=== PATIENT | female | born 1950 | race Caucasian/White ===

== ENCOUNTER → 2021-04-25 09:45 | Outpatient (CLI) | payer MEDICARE, SELFPAY ==
[2021-04-25 13:14] LABS: COVID19 -Nasal RAPID Negative (Negative)
== END ==
PROVIDERS: Visit Provider Nurse Practitioner Family
DX: Z20.822 Contact with and (suspected) exposure to COVID-19 (principal)
CPT/HCPCS: 87635; C9803

== ENCOUNTER 2021-04-27 13:44 | Day surgery (SDC) | payer MEDICARE, SELFPAY ==
[2021-04-27] VITALS (8 sets, daily range): BP systolic 108–133; BP diastolic 67–82; PULSE 70–88; RESP 16; TEMP 36–37.2; O2SAT 96–100; BMI 35.3
--- NOTE | 2021-04-27 | PATH_ITS ---
[facility] Accession Number: [id number] . 01 Material submitted: . PART A: duodenum - DUODENUM BIOPSY PART B: stomach - GASTRIC ANTRUM BIOPSY PART C: stomach - GASTRIC POLYPS . 02 Diagnosis: A. Duodenum, Biopsy: Small bowel mucosa with no diagnostic abnormality. Negative for active inflammation, dysplasia, and malignancy. . B. Gastric Antrum, Biopsy: Gastric antral mucosa with mild chronic inflammation. Negative for Helicobacter organisms by immunohistochemistry. Negative for intestinal metaplasia. Negative for dysplasia or malignancy. . C. Gastric Polyps: Portions of hyperplastic polyp x2. MRV 05/03/2021 1412 Local . 02 Electronically signed: . Luz Maria Quinteros MD, Pathologist NPI- [id number] . 01 Gross description: . Part A: DUODENUM BIOPSY: Received in formalin are 2 fragment(s) of robles, soft tissue measuring 0.2 x 0.2 x 0.2 cm to 0.2 x 0.2 x 0.1 cm submitted entirely in 1 cassette(s) Part B: GASTRIC ANTRUM BIOPSY: Received in formalin is 1 fragment(s) of robles, soft tissue measuring 0.1 x 0.1 x 0.1 cm submitted entirely in 1 cassette(s) Part C: GASTRIC POLYPS: Received in formalin are 2 fragment(s) of robles, soft tissue measuring 0.3 x 0.3 x 0.1 cm to 0.2 x 0.2 x 0.1 cm submitted entirely in 1 cassette(s) /GET 04/29/2021 1129 Local . 02 Microscopic: . B. An immunohistochemical stain was performed to evaluate for Helicobacter organisms and is negative. The control stain showed appropriate reactivity. . . * This test was developed and its performance characteristics determined by [facility]. It has not been cleared or approved by the U.S. Food and Drug Administration. The FDA has determined that such clearance or approval is not necessary. This test is used for clinical purposes. It should not be regarded as investigational or for research. . 02 Pathologist provided ICD-10: D50.9 . 02 CPT . 374273, 863004, 348515, S60737 Performed at: 01 [facility] [address] [address], [place], [place] [id number] MD Ronni Guzman MD Phone: [phone] Performed at: 02 [facility] [address] [place] [id number] MD Roxane Holliday MD Phone: [phone]
--- NOTE | 2021-04-27 15:25 | PM.HP.1 ---
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 Family & Social History Social History: household members spouse Tobacco & Substance use: Smoking Status Former smoker alcohol intake never Substance Use Type does not use Meds Home Medications and Allergies Home Medications Medication Instructions Recorded Confirmed Type Blank 10 mg PO DAILY 04/26/21 04/27/21 History Excedrin Back and Body 04/26/21 History Tylenol 04/26/21 History Vitamin B-12 04/26/21 History Vitamin C 04/26/21 History Vitamin D3 04/26/21 History bupropion HCl 300 mg PO DAILY 04/26/21 04/27/21 History calcium 1,200 mg PO DAILY 04/26/21 04/27/21 History losartan 100 mg PO DAILY 04/26/21 04/27/21 History lovastatin 40 mg PO DAILY 04/26/21 04/27/21 History multivit,bkdxfxc-hcc-zyjkq acd 04/26/21 History omeprazole 40 mg capsule,delayed 40 mg PO DAILY 04/26/21 04/27/21 History release propranolol 20 mg PO PRN 04/26/21 History tramadol 04/26/21 History Allergies Allergy/AdvReac Type Severity Reaction Status Date / Time lisinopril Allergy Intermediate Cough Verified 04/27/21 15:07 codeine Allergy Mild Nausea Verified 04/27/21 15:06 hydrochlorothiazide AdvReac Mild unknown Verified 04/27/21 15:06 hydrocodone AdvReac Mild nuasea Verified 04/27/21 15:06 hydroxyzine AdvReac Mild unknown Verified 04/27/21 15:07 Review of Systems Review of Systems ROS: Yes All systems reviewed with the patient and are negative except as otherwise documented Exam Vital Signs (past 8 hours): - 04/27/21 14:44 Temperature 99.0 F Pulse Rate 70 Respiratory Rate 16 Blood Pressure 132/81 Pulse Oximetry 98 Oxygen Delivery Method Room Air Const General: cooperative and comfortable Orientation: alert HENMT Head: normocephalic Ears: external ears normal Nose: external nose normal Face and sinus: normal facial exam Mouth: oral mucosae normal Eyes General: appearance normal, both eyes and all related structures Neck Neck: normal visual inspection Chest Chest: normal inspection of the chest Resp Effort & Inspection: normal respiratory effort Auscultation: clear to auscultation bilaterally Cardio Rate: regular rate Rhythm: regular rhythm Heart Sounds: no murmurs GI Inspection: normal to inspection Palpation: soft and No tender Auscultation: normal bowel sounds Skin General: no rashes or lesions noted and No jaundice Neuro General: patient alert and moves all extremities Cognition: normal cognition Speech: speech normal Extrem General: no pedal edema Psych Appearance: grossly normal Assessment & Plan Assessment & Plan narrative: Iron deficiency anemia. EGD and colonoscopy are planned for today. Time Spent With Patient Critical Care time: I spent a total of [] minutes of critical care time on this patient's care today; this time is exclusive of procedural time.
[2021-04-27] MEDS: SODIUM CHLORIDE 0.9% 1,000 ML 84 ML IV (15:27)
--- NOTE | 2021-04-27 15:27 | PM.PREOP ---
Pre-operative Note COVID-19 COVID-19 status: Negative Result date/Date tested (Pos, Neg/Pending): 04/25/21 Interval Note History & Physical reviewed/Exam performed by Physician: Yes Changes to H&P: No ASA Class (for procedural sedation): II
--- NOTE | 2021-04-27 16:10 | PM.OP.ENDO ---
Operative Date/Time/Diagnoses Date of procedure: 04/27/21 Time of procedure: 16:10 Pre-op diagnosis: Iron deficiency anemia Post-op diagnosis: same Procedure & Clinicians Study performed: EGD with biopsies and colonoscopy Same procedure as scheduled: Yes Indications: Iron deficiency anemia Surgeon: Chuy Garcia Procedure Notes SCOAP/Timeout: Done Procedure in detail: After the risks and benefits were explained, written and verbal informed consent was obtained. The patient was brought into the procedure room and placed into the left lateral decubitus position. Please see nurse seed laboratory assistant notes The scope was introduced into the mouth through the bite block and advanced under direct visualization to the 2nd portion of the duodenum. The scope was slowly withdrawn carefully examining the mucosa for any defects or lesions. Retroflexed views were accomplished in the stomach. The stomach was decompressed, the scope was then removed from the patient who tolerated the procedure well. Patient was then turned around a digital rectal examination was accomplished the scope was introduced into the rectum and advanced under direct visualization to cecum as identified by the appendiceal orifice and ileocecal valve. The scope was slowly withdrawn to carefully examine the mucosa for any defects or lesions. Multiple direct views were made through the dentate line for exclusion of pathology the colon was decompressed the scope removed from the patient who tolerated the procedure well. Bowel prep adequate Adult colonoscope Scope withdrawal time: 6 minutes Sedation minutes: 37 Complications: none Impression: 1. Duodenum: This appeared visually normal from the bulb through to the 2nd portion. Random D2 biopsies were acquired for exclusion of celiac. 2. Stomach: There was mild gastropathy appreciated in the antrum and therefore biopsy was acquired for exclusion of Helicobacter pylori infection. No ulcers no outlet obstruction no mass lesions. Retroflexed views of the LES disclosed a moderate-sized hiatal hernia. 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 In the proximal stomach and fundus there were several diminutive benign-appearing polyps 1 of these was sampled with forceps for histopathologic analysis. 3. Esophagus: The is way more columnar junction seen to correlate quite well with the top of the gastric folds. GEJ was at approximately 32 cm from the incisors. The the diaphragmatic hiatus was at approximately 36 cm from the incisors. The remainder of the esophagus was visually unremarkable. 4. Colon: Patient had a fairly tortuous sigmoid colon. With the adult colonoscope this was a little challenging. I did not appreciate any polyps mass lesions or inflammatory features throughout. Endoscopic diagnosis: 1. Moderate-sized hiatal hernia 2. Diminutive gastric polyps 3. Mild gastropathy 4. Visually normal colonoscopy to cecum Post-procedure Plan for aftercare: 1. Await histopathology. 2. Continue omeprazole. 3. Repeat colonoscopy can be considered in 5 years considering the multiple second-degree family members with a history of colon cancer. 4. No obvious explanation was found today for the iron deficiency anemia apart from the subtle Luisito's erosions which were not active at this time. I therefore would recommend capsule endoscopy. Disposition: PACU
--- NOTE | 2021-04-27 16:47 | SUR.PHASEII ---
dc instructions given in detail. questions invited and answered. states understanding. cosme juice well. converses appropriately with staff.
== END 2021-04-27 17:10 | disposition home or self-care (01) ==
PROVIDERS: PCP Family Medicine; Referring Provider Internal Medicine Gastroenterology; Visit Provider Internal Medicine Gastroenterology
PROC: 0DJ08ZZ Inspection of Upper Intestinal Tract, Via Natural or Artificial Opening Endoscopic (ICD-10-PCS; CPT 43235; principal; 2021-04-27 15:15)
PROC: 0DJD8ZZ Inspection of Lower Intestinal Tract, Via Natural or Artificial Opening Endoscopic (ICD-10-PCS; CPT 45378; 2021-04-27 15:15)
DX: D50.9 Iron deficiency anemia, unspecified (principal); K44.9 Diaphragmatic hernia without obstruction or gangrene; K31.7 Polyp of stomach and duodenum; K31.9 Disease of stomach and duodenum, unspecified; E53.8 Deficiency of other specified B group vitamins; I10 Essential (primary) hypertension; Z80.0 Family history of malignant neoplasm of digestive organs
CPT/HCPCS: 43239; 45378

== ENCOUNTER → 2024-04-18 11:18 | Outpatient (CLI) | payer MEDICARE, SELFPAY ==
--- NOTE | 2024-04-18 | DI.MRI.S_ITS ---
PROCEDURE: MR SHOULDER LT WO CON INDICATIONS: chronic left shoulder pain TECHNIQUE: Noncontrast oblique coronal T2 fast spin echo with fat saturation, oblique sagittal T1 spin echo and T2 fast spin echo with fat saturation, axial T1 spin echo and T2 fast spin echo with fat saturation through the shoulder. Five sequences total COMPARISON: None. 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 Markedly irregular degenerated labrum suggests remote superior labrum anterior-posterior tear. Rotator cuff: Abnormal increased T2 weighted signal and thinning of the rotator cuff predominantly the of the mid and distal supraspinatus infraspinatus with suspected partial tear, thickening and low signal distal supraspinatus may represent chronic calcifications. Mild increased T2 weighted signal of the distal infraspinatus and subscapularis. Teres minor within normal limits for patient's age. Moderate degenerative changes acromioclavicular joint with joint space narrowing, mild joint space fluid, moderate osteophytes. Mild glenohumeral joint fluid slightly more than physiologic amount without large effusion. No MR evidence of fracture or dislocation. Mild increased fluid surrounding proximal biceps tendon with increased signal at the biceps anchor likely chronic injury/strain changes, tenosynovitis. Image quality: Excellent. 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 Markedly irregular degenerated labrum. Suspected chronic rotator cuff tear as discussed above predominantly in the mid to distal supraspinatus. Moderate degenerative changes acromioclavicular joint. Mild glenohumeral joint fluid. Mild increased fluid surrounding proximal biceps tendon with increased signal at the biceps anchor likely chronic injury/strain changes, tenosynovitis. No MR evidence of fracture or dislocation. Dictated by: Compa Santos M.D. on 04/19/2024 at 17:25 Approved by: Compa Santos M.D. on 04/19/2024 at 17:33
== END ==
PROVIDERS: PCP Family Medicine; Referring Provider Family Medicine; Visit Provider Family Medicine
DX: M25.512 Pain in left shoulder (principal); G89.29 Other chronic pain
CPT/HCPCS: 73221